=== PATIENT | female | born 1980 | race Caucasian/White ===

== ENCOUNTER 2019-11-27 20:24 | Emergency (ER) | payer OTHER ==
[~2019-11-27] VITALS: Ht 157.5 cm; Wt 75.0 kg
[2019-11-28] MEDS ORDERED: AZITHROMYCIN 500 MG TABLET PO ONE (00:30)
[2019-11-28] MEDS ORDERED: CEFTRIAXONE SODIUM 250 MG/VIAL IM ONE (00:30)
[2019-11-28 02:00] LABS: CLARITY URINE CLOUDY (CLEAR); COLOR URINE YELLOW (YELLOW); KETONES URINE NEGATIVE (NEGATIVE); LEUKOCYTE ESTERASE URINE 3+ (NEGATIVE); NITRITE URINE NEGATIVE (NEGATIVE); OCCULT BLOOD URINE TRACE (NEGATIVE); PH URINE 6.5 (4.5-8.0); PROTEIN URINE NEGATIVE (NEGATIVE); SPECIFIC GRAVITY URINE 1.017 (1.005-1.030); UROBILINOGEN URINE 0.2 E.U./dL (0.2-1.0)
[2019-11-28 03:58] VITALS: BP 122/72
== END 2019-11-28 03:59 | disposition home or self-care (01) ==
LOC: ER 20:24
DX: N30.00 Acute cystitis without hematuria (principal); Z98.51 Tubal ligation status; Z91.02 Food additives allergy status
CPT/HCPCS: 81003; 81025; 87086; 87210; 87491; 87591; 96372; 99283; J0696